=== PATIENT | male | born 1960 | race Two or more races ===

== ENCOUNTER 2020-04-17 09:01 | Outpatient (CLI) | payer OTHER | END 2020-04-17 10:30 | disposition home or self-care (01) | LOC: OFIC 805 09:01 | PROVIDERS: ATTEND Otolaryngology Otology & Neurotology | DX: H69.83 Other specified disorders of Eustachian tube, bilateral (principal); H74.8X3 Other specified disorders of middle ear and mastoid, bilateral; J30.89 Other allergic rhinitis ==

== ENCOUNTER → 2020-06-12 | Outpatient (CLI) | payer OTHER | END | disposition home or self-care (01) | LOC: OFIC 805 05-20 15:00 | PROVIDERS: ATTEND Otolaryngology Otology & Neurotology | DX: H69.83 Other specified disorders of Eustachian tube, bilateral (principal); H74.8X3 Other specified disorders of middle ear and mastoid, bilateral; J30.89 Other allergic rhinitis ==